=== PATIENT | female | born 1960 | race Caucasian/White ===

== ENCOUNTER 2018-12-24 16:20 | Emergency (ER) | payer OTHER ==
[~2018-12-24] VITALS: Ht 172.7 cm; Wt 151.0 kg
[~2018-12-24 16:20] MED LIST: ASPIR 8181 MG PO; ATORVASTATIN CA10 M1 PO; CARVEDILOL3.125 M1 PO; CLINDAMYCIN HC300 MG PO; DICLOFENAC SODI75 MG PO; DILTIAZEM HCL180 MG PO; HYDROCHLOROTHIA25 MG PO; LAC PO; METFORMIN ER500 M1 PO; NEURONTIN800 MG PO; NUCYNTA100 M1 PO; NYSTATIN1 POW; PRILOSEC20 MG PO; PROCARDIA XL90 MG PO; PROZ20 PO; TRAMADOL HCL50 MG PO; ZOC10 PO
[2018-12-24 16:24] VITALS: Ht 172.7 cm; Wt 151.0 kg
[2018-12-24 18:03] VITALS: BP 145/83
== END 2018-12-24 18:03 | disposition home or self-care (01) ==
LOC: ED 16:20
DX: L02.11 Cutaneous abscess of neck (principal); I10 Essential (primary) hypertension; E11.9 Type 2 diabetes mellitus without complications; M19.90 Unspecified osteoarthritis, unspecified site; G89.29 Other chronic pain; F32.9 Major depressive disorder, single episode, unspecified; Z85.3 Personal history of malignant neoplasm of breast; Z98.890 Other specified postprocedural states
CPT/HCPCS: 90715